=== PATIENT | female | born 1955 | race Caucasian/White ===

== ENCOUNTER → 2017-05-04 | Outpatient (CLI) | payer OTHER ==
--- NOTE | 2017-05-04 23:14 | MR ---
EXAMINATION TYPE: MR shoulder LT wo con DATE OF EXAM: 05/04/2017 COMPARISON: NONE HISTORY: Lt shoulder pain x 2 mos, no trauma TECHNIQUE: Multiplanar, multisequence imaging of the left shoulder is performed without contrast. FINDINGS: There is severe subacromial joint space narrowing. There is retraction of the supraspinatus tendon. T here is wavy appearance of the subscapularis tendon. Biceps tendon is intact. There is a shoulder sera nt effusion. The glenoid chayito appear intact. There is no evidence of a fracture. There is narrowing of the shoulder joint space. IMPRESSION: Large rotator cuff tear with retraction of the supraspinatus tendon. Severe subacromial joint space n arrowing and impingement. Shoulder joint effusion with partial tear of the subscapularis tendon. Supe rior subluxation of the humeral head.
== END | disposition home or self-care (01) ==
LOC: RADMRIMAIN 15:39
PROVIDERS: ATTEND Orthopaedic Surgery
DX: S43.002A Unspecified subluxation of left shoulder joint, initial encounter (principal); M75.112 Incomplete rotator cuff tear or rupture of left shoulder, not specified as traumatic; M25.812 Other specified joint disorders, left shoulder

== ENCOUNTER → 2017-09-27 | Outpatient (CLI) | payer OTHER ==
--- NOTE | 2017-09-27 13:47 | MR ---
EXAMINATION TYPE: MR shoulder RT wo con DATE OF EXAM: 09/27/2017 12:33 PM COMPARISON: NONE HISTORY: Rt shoulder pain TECHNIQUE: Multiplanar multispin echo imaging of the right shoulder was performed. FINDINGS: Rotator cuff : Full thickness partial tear anterior aspect of the supraspinatus tendon with fluid thai led gap of 9.4 mm. Remaining portions of the tendon demonstrates tendinopathy with edema. Partial tea r infraspinatus tendon noted. Bursa: No bursal effusion or thickening is seen. Musculature: Edema of the infraspinatus musculature seen. Acromioclavicular joint : There are moderate degenerative changes of the acromioclavicular joint. Cur ariana acromion noted. Small subacromial spur. Osseous structures : There are no fractures or regions of abnormal bone marrow signal intensity. Long biceps tendon : The biceps tendon is normally situated within the bicipital groove. No complete or partial biceps tendon tear is present. Glenohumeral Joint fluid : There is no glenohumeral joint effusion. Cartilage and Bone : No focal hyaline cartilage defects are noted. No Hill-Sachs, reverse Hill-Sachs, or bony Bankart lesions are seen. Labrum : There are no SLAP or soft tissue Bankart lesions. No paralabral cysts are seen. OTHER FINDINGS : none IMPRESSION: 1. Full thickness partial tear anterior aspect of the supraspinatus tendon with fluid filled gap of 9 .4 mm. Remaining portions of the tendon demonstrates tendinopathy with edema. Partial tear infraspina tus tendon noted.
== END | disposition home or self-care (01) ==
LOC: RADMRIMAIN 11:50
PROVIDERS: ATTEND Orthopaedic Surgery
DX: S46.811A Strain of other muscles, fascia and tendons at shoulder and upper arm level, right arm, initial encounter (principal); M75.121 Complete rotator cuff tear or rupture of right shoulder, not specified as traumatic; M75.81 Other shoulder lesions, right shoulder

== ENCOUNTER → 2017-11-14 | Outpatient (CLI) | payer OTHER ==
--- NOTE | 2017-11-20 09:15 | MM ---
Reason for exam: screening (asymptomatic). Last mammogram was performed 1 year and 8 months ago. History: Patient is postmenopausal. Benign MG stereo VAD BX RT of the right breast, September 02, 2014. Took estrogen for 7 years beginning at age 40. Physical Findings: A clinical breast exam by your physician is recommended on an annual basis and results should be correlated with mammographic findings. MG 3D Screening Mammo W/Cad Bilateral CC and MLO view(s) were taken. Prior study comparison: March 10, 2016, bilateral MG screening mammo w CAD. July 08, 2014, bilateral MG diagnostic mammo w CAD LLUVIA. There are scattered fibroglandular densities. There are increased calcifications at post biopsy site that could relate to developing fat necrosis, however further evaluation with magnification views will be performed. No suspicious abnormality on the left breast. ASSESSMENT: Incomplete: need additional imaging evaluation, BI-RAD 0 RECOMMENDATION: Special view mammogram of the right breast. [facility] will attempt to contact patient to return for supplemental views.
== END | disposition home or self-care (01) ==
LOC: RADMAMWWP 09:00
PROVIDERS: ATTEND Family Medicine
DX: Z12.31 Encounter for screening mammogram for malignant neoplasm of breast (principal)
CPT/HCPCS: 77063; 77067

== ENCOUNTER → 2017-11-22 | Outpatient (CLI) | payer OTHER ==
--- NOTE | 2017-11-23 10:31 | MM ---
Reason for exam: additional evaluation requested from abnormal screening. Last mammogram was performed less than 1 month ago. History: Patient is postmenopausal. Benign MG stereo VAD BX RT of the right breast, September 02, 2014. Took estrogen for 7 years beginning at age 40. Physical Findings: Nurse did not find any significant physical abnormalities on exam. MG 3D Work Up W/Cad RT CC with magnification, LM with magnification, and LM view(s) were taken of the right breast. Prior study comparison: November 14, 2017, bilateral MG 3d screening mammo w/cad. March 10, 2016, bilateral MG screening mammo w CAD. Finding: There are typically benign coarse calcifications in the right breast. New finding since November 14, 2017 and March 10, 2016. These results were verbally communicated with the patient and result sheet given to the patient on 11/22/17. ASSESSMENT: Probably benign, BI-RAD 3 RECOMMENDATION: Follow-up diagnostic mammogram of the right breast in 6 months.
== END | disposition home or self-care (01) ==
LOC: RADMAMWWP 15:39
PROVIDERS: ATTEND Family Medicine
DX: R92.8 Other abnormal and inconclusive findings on diagnostic imaging of breast (principal)
CPT/HCPCS: 77061; 77065

== ENCOUNTER 2018-01-02 06:11 | Day surgery (SDC) | payer OTHER ==
[2017-12-27 11:21] VITALS: BMI 37.0
--- NOTE | 2018-01-01 14:50 | HP ---
HISTORY AND PHYSICAL DATE OF SERVICE: 01/02/2018 Elisabeth Valera is a 62-year-old patient seen with progressive right shoulder pain. We discussed treatment options with her. She elected to proceed with right shoulder arthroscopy. Consent regarding the procedure was obtained. PAST MEDICAL HISTORY: Hypertension, hypothyroidism. PAST SURGICAL HISTORY: Hysterectomy. DAILY MEDICATIONS: Bisoprolol/hydrochlorothiazide. ALLERGIES: None reported. SOCIAL HISTORY: Patient denies current tobacco use. PHYSICAL EVALUATION OF THE RIGHT SHOULDER: Flexion 150 degrees, abduction 140 degrees, external rotation is 50 degrees with significant weakness. There is tenderness along the anterolateral acromion rotator cuff insertion site. Impingement positive at 90 degrees. Drop-arm sign positive. Distal neurovascular exam intact. RIGHT SHOULDER RADIOGRAPHS: Revealed cystic changes of the greater tuberosity. A right shoulder MRI revealed rotator cuff tear and acromioclavicular joint osteoarthritis. IMPRESSION: Right shoulder impingement with rotator cuff tear. PLAN: Right shoulder arthroscopy with subacromial decompression, possible arthroscopic rotator cuff repair and debridement. MMODL / IJN: [id number] /
[~2018-01-02 06:11] MED LIST: DEXAMETHASONE SOD PHOSPHATE 10 MG/ML 1 ML VIAL IV ONE; HYDROmorphone 0.5 MG/0.5 ML SYRINGE IVP PRN; LACTATED RINGERS 1,000 ML IV SCH; MIDAZOLAM 2 MG/2 ML VIAL IV PRN; MORPHINE SULFATE 4 MG/ML SYRINGE IV PRN; ONDANSETRON 4 MG/2 ML VIAL IVP ONE; ONDANSETRON 4 MG/2 ML VIAL IVP PRN; ceFAZolin IN SWFI 2 GM/20 ML SYRINGE IVP ONE
[2018-01-02] MEDS ORDERED: LIDOCAINE 1% 20 ML VIAL (10MG/ML) FOR IV START INTRADERMA ONE (06:42)
[2018-01-02] MEDS ORDERED: HYDROmorphone 1 MG/ML 1 ML SYRINGE IVP PRN (06:45)
[2018-01-02] MEDS ORDERED: MIDAZOLAM 2 MG/2 ML VIAL ONE ×2 (06:51→08:08)
[2018-01-02] MEDS ORDERED: fentaNYL (PF) 50 MCG/ML 2 ML AMP ONE ×2 (06:52→08:08)
[2018-01-02] MEDS ORDERED: ROCURONIUM BROMIDE 10 MG/ML 10 ML VIAL IV ONE (08:08)
[2018-01-02] MEDS ORDERED: HYDROmorphone (PF) 1 MG/ML ONE (08:08)
[2018-01-02] MEDS ORDERED: NEOSTIGMINE 1 MG/ML 10 ML VIAL ONE (08:08)
[2018-01-02] MEDS ORDERED: ROPIVACAINE 5 MG/ML 30 ML VIAL ONE (08:08)
[2018-01-02] MEDS ORDERED: KETOROLAC 30 MG/ML 1 ML VIAL ONE (08:08)
[2018-01-02] MEDS ORDERED: LIDOCAINE 1% INJ 10MG/ML (20 ML MDV) ONE (08:08)
[2018-01-02] MEDS ORDERED: PROPOFOL 10 MG/ML 20 ML VIAL IV ONE (08:08)
[2018-01-02] MEDS ORDERED: GLYCOPYRROLATE 0.2 MG/ML 2 ML VIAL ONE (08:08)
--- NOTE | 2018-01-02 10:02 | P.OP ---
Date of Procedure: 01/02/18 Preoperative Diagnosis: Right shoulder impingement Postoperative Diagnosis: 1. Right shoulder rotator cuff tear 2. Right shoulder impingement 3. Right shoulder acromioclavicular joint osteoarthritis 4. Right shoulder partial long head biceps tendon tear Procedure(s) Performed: 1. Right shoulder arthroscopic rotator cuff repair 2. Right shoulder arthroscopic subacromial decompression was 3. Right shoulder arthroscopic Luis procedure 4. Right shoulder arthroscopic biceps tenotomy Implants: 5Arthrex swivel lock anchors Anesthesia: GETA, regional (Interscalene block) Surgeon: Raymon Kelly Olive Grower #1: Humberto Beal Estimated Blood Loss (ml): 12 Pathology: none sent Condition: stable Disposition: PACU Indications for Procedure: 62-year-old patient seen with progressive right shoulder pain. After having treatment options discussed, she elected to proceed with arthroscopy. Operative Findings: see description of procedure Description of Procedure: Patient underwent an interscalene block by department of anesthesia for postoperative pain control. The patient was then taken to the operative suite. The patient underwent a general anesthetic by the department of anesthesia. The patient was placed into a lateral position and secured. There was appropriate padding of the bony prominence. Right shoulder was then prepped and draped in normal sterile orthopedic fashion. We placed the extremity in 10 pounds of longitudinal traction. A posterior incision was now made for a posterior working portal site. The trocar and cannula were inserted into the glenohumeral joint. Arthroscopy was initiated. Spinal needle was now inserted anteriorly, to ascertain the anterior working portal site. An incision was now made in that area, a trocar was inserted followed by a probe. There was significant partial tearing long head biceps tendon greater than 80%. There was an obvious massive rotator cuff tear clearly visualized from the glenohumeral joint. There were grade 1 on drill malacia changes of the glenoid fossa with no osteochondral tears present. The labrum appeared mildly frayed but intact. I performed an arthroscopic biceps tenotomy. The anchor was probed and found to be stable. Instruments now removed from glenohumeral joint. Utilizing the posterior working portal site, the trocar and cannula were inserted into the subacromial space. Arthroscopy initiated. I made an incision 2 fingerbreadths lateral to the acromion. I introduced my trocar followed by my ArthroCare ablator. I now began ablating thick subacromial bursal tissue, which exposed the undersurface of the anterior acromion. There was diminished subacromial space. There was a very prominent anterior acromion. A motorized bur was introduced and a subacromial decompression was performed. I also excised some osteophytes off the inferior aspect of the distal clavicle. The AC joint was visualized and noted to be fairly arthritic. The motorized bur was introduced in the anterior portal site and a Luis procedure was performed without difficulty, decompressing the AC joint nicely. I turned my attention to the rotator cuff. There was a 3 cm rotator cuff tear. I debrided the margins getting down to stable tendon tissue. I introduced my motorized bur and abraded the footprint area, getting some petechial bleeding. I now made an accessory portal site off the lateral aspect of the acromion. I punched 2 holes medial for medial row fixation with the assistance of Armani LUND carefully tapping the punch with a mallet as I held the punch and the camera. I now introduced both anchors into the pre-punched holes and Armani LUND tapped them with the mallet as I held anchors and the camera. Armani LUND now screwed the anchors in place a while I held the anchor guide and camera. All 8 limbs of suture were now passed through good bites of rotator cuff tendon. I now punched 2 holes for lateral row fixation again I held the punch and camera while Armani LUND used a mallet to tap in the punch. We now passed sutures through both anchors and individually I introduced the anchors into the pre- punch holes I held the anchor guide in position with one hand holding the camera with the other hand while Armani LUND tensioned the sutures and screwed in the anchors one at a time. All residual suture limbs were now clipped. I noted to prominent dogears. I now passed to link sutures through those. I now introduced one more anchors laterally to bring those dogears down and compressed some on the footprint. Those suture limbs were clipped. We had good compression of the tendon along the entire footprint. I injected 1 mL Renue intra-articular. Instruments now removed from the portal sites. All portal sites were approximated with nylon suture. Sterile dressings were applied followed by a shoulder immobilizer. Humberto LUND assisted in this complex case. The patient was awakened, transferred to a bed, and taken to recovery in stable condition.
[2018-01-02 10:03] VITALS: TEMP 97.1
[2018-01-02] MEDS ORDERED: IV FLUID CONTINUATION 1,000 ML IV ONE (10:40)
[2018-01-02 10:51] VITALS: BP 113/76
--- NOTE | 2018-01-02 10:52 | P.ONQ ---
Anesthesiology Proc Note - PNB - Peripheral Nerve Block Performed Right Interscalene Single Time Out Performed: Yes Procedure Start Time: 07:30 Procedure Stop Time: 07:45 Indication: Acute Post-Operative Pain, Requested by physician Sedation Type: Sedate with meaningful contact maintained Preparation: Sterile Prep Position: Supine Catheter: None Needle Size: 50mm (2") Needle Gauge: 21 Technique: Ultrasound Injectate: 0.5% Ropivacaine (see comment for volume) Blood Aspirated: No Pain Paresthesia on Injection Noted: No Resistance on Injection: Normal Events: Uneventful and Well Tolerated (Ropivicaine 0.5% 20ml solution infiltrated along the interscalene prefascial groove. Procedure was uneventful.)
[2018-01-02 11:26] VITALS: PULSE 75; RESP 18
== END 2018-01-02 11:47 | disposition home or self-care (01) ==
LOC: OR 06:11
PROVIDERS: ATTEND Orthopaedic Surgery
DX: M75.101 Unspecified rotator cuff tear or rupture of right shoulder, not specified as traumatic (principal); M75.41 Impingement syndrome of right shoulder; M19.011 Primary osteoarthritis, right shoulder; S46.111A Strain of muscle, fascia and tendon of long head of biceps, right arm, initial encounter; X58.XXXA Exposure to other specified factors, initial encounter; M25.711 Osteophyte, right shoulder; I10 Essential (primary) hypertension; E03.9 Hypothyroidism, unspecified; E66.01 Morbid (severe) obesity due to excess calories; Z68.37 Body mass index [BMI] 37.0-37.9, adult; E78.5 Hyperlipidemia, unspecified; F32.9 Major depressive disorder, single episode, unspecified; Z79.899 Other long term (current) drug therapy; Z79.890 Hormone replacement therapy; Z79.891 Long term (current) use of opiate analgesic; Z90.710 Acquired absence of both cervix and uterus; Z88.5 Allergy status to narcotic agent
CPT/HCPCS: 64415; 29824; 29827; 29826; C1713 ×4; C1765; J2250; J1100; J2710; J2405; J2001; J3010; J1885; J1170; J2795; J2704; J0690

== ENCOUNTER 2018-01-07 09:42 | Emergency (ER) | payer OTHER ==
[2018-01-07 09:55] VITALS: RESP 18
[2018-01-07] MEDS ORDERED: SODIUM CHLORIDE 0.9% 500 ML IV STA (10:02)
[2018-01-07 10:35] LABS: Basophils % (A) 0 %; Eosinophils # (A) 0.2 k/uL (0-0.7); Eosinophils % (A) 1 %; HCT 37.8 % (34.0-46.0); HGB 12.7 gm/dL (11.4-16.0); Lymphocytes # (A) 1.4 k/uL (1.0-4.8); Lymphocytes % (A) 8 %; MCH 30.1 pg (25.0-35.0); MCHC 33.6 g/dL (31.0-37.0); MCV 89.8 fL (80.0-100.0); Monocytes # (A) 0.7 k/uL (0-1.0); Monocytes % (A) 5 %; Neutrophils # (A) 13.6 k/uL (1.3-7.7); Neutrophils % (A) 85 %; Platelet Count 350 k/uL (150-450); RBC 4.21 m/uL (3.80-5.40); RDW 12.7 % (11.5-15.5)
--- NOTE | 2018-01-07 11:02 | XR ---
Abdomen HISTORY: Pain Frontal view of the abdomen on 2 images. No comparisons There is a spinal curvature, degenerative disc changes in the visualized spine. Bases are clear. Righ t hemidiaphragm is elevated. No evident obstruction or pneumoperitoneum. Probable vascular calcificat ions noted within the pelvis. IMPRESSION: Nonobstructive bowel gas pattern.
[2018-01-07 11:10] LABS: ALT 29 U/L (9-52); AST 27 U/L (14-36); Albumin 4.1 g/dL (3.5-5.0); Alkaline Phosphatase 88 U/L (38-126); Amylase 33 U/L (30-110); Anion Gap 10 mmol/L; Blood Urea Nitrogen 11 mg/dL (7-17); Calcium 9.9 mg/dL (8.4-10.2); Carbon Dioxide 27 mmol/L (22-30); Chloride 101 mmol/L (98-107); Glucose 112 mg/dL (74-99); Lipase 23 U/L (23-300); Potassium 4.1 mmol/L (3.5-5.1); Sodium 138 mmol/L (137-145); Total Bilirubin 0.9 mg/dL (0.2-1.3); Total Protein 7.2 g/dL (6.3-8.2)
--- NOTE | 2018-01-07 11:27 | ED ---
Abdominal Pain HPI - General Chief Complaint: Abdominal Pain Stated Complaint: Bowel obstruction Time Seen by Provider: 01/07/18 10:02 Source: patient Mode of arrival: ambulatory Limitations: no limitations - History of Present Illness Initial Comments: 62-year-old female with past medical history of hypertension, previous hysterectomy/ and internal hemorrhoids presenting today after being sent by primary care physician for possible bowel obstruction. Patient states that she had surgery on her right shoulder last week and has been on pain pills which have caused constipation. She states that she had a normal bowel movement the morning of the surgery however she has not had a large BM since. Patient has been able to have small liquid bowel movements, she states that she had noted some blood in her stools which happens when she strains from her hemorrhoids. In addition patient has had lower abdominal distention and diffuse lower abdominal pain, as well as pressure at the level of the rectum. She states it is a sharp aching pain in the rectum. Patient denies fever, chills , vomiting, melena, hematemesis. Patient states she presented to primary care provider for evaluation of abdominal pain where KUB was obtained she stated there was findings concerning for possible obstruction in the rectum and she was sent to the emergency department for evaluation. I spoke with patient's physician professional nursing assistant Мария who stated that there was no definitive bowel instruction however they noticed possible dilated loops concerning for obstruction. Upon arrival patient vital signs stable, afebrile. Patient denies any recent shortness of breath, chest pain, numbness or tingling, dysuria or hematuria, headaches or visual changes, or any other complaints. - Related Data Home Medications Medication Instructions Recorded Confirmed Bisoprolol-Hctz 10-6.25 mg [Ziac 2 tab PO QAM 04/16/15 01/07/18 10-6.25] Levothyroxine Sodium [Synthroid] 75 mcg PO DAILY 04/16/15 01/07/18 Sertraline [Zoloft] 100 mg PO QAM 04/16/15 01/07/18 Simvastatin [Zocor] 20 mg PO MOWEFR 04/16/15 01/07/18 Hydrocodone/Acetaminophen [Vicodin 1 tab PO Q6HR PRN 06/08/17 01/07/18 Hp 10-300 mg Tablet] Losartan Potassium 100 mg PO QAM 03/09/18 10/08/18 traMADol HCL [Ultram] 50 mg PO Q6HR PRN 06/08/17 01/07/18 traZODone HCL 50 mg PO HS 06/08/17 01/07/18 Previous Rx's Medication Instructions Recorded Docusate [Colace] 100 mg PO DAILY 7 Days #7 capsule 01/07/18 Allergies Allergy/AdvReac Type Severity Reaction Status Date / Time hydrocodone [From [place]] AdvReac Itching Verified 01/07/18 10:23 Review of Systems ROS Statement: Those systems with pertinent positive or pertinent negative responses have been documented in the HPI. ROS Other: All systems not noted in ROS Statement are negative. Constitutional: Denies: fever, chills, night sweats ENT: Denies: ear pain, throat pain Respiratory: Denies: cough, dyspnea, wheezes, hemoptysis, stridor Cardiovascular: Denies: chest pain, palpitations, dyspnea on exertion Gastrointestinal: Reports: abdominal pain, nausea, diarrhea (small loose BM), constipation (non normal BM in 5 days), hematochezia. Denies: vomiting, hematemesis, melena Genitourinary: Denies: urgency, dysuria, frequency, hematuria Musculoskeletal: Reports: back pain (chronic low back pain, denies changes), arthralgia (right shoulder pain s/p right shoulder surgery) Neurological: Denies: headache, weakness, numbness, paresthesias, confusion, abnormal gait Past Medical History Past Medical History: Asthma, Hyperlipidemia, Hypertension, Osteoarthritis (OA) , Thyroid Disorder Additional Past Medical History / Comment(s): varicose veins, History of Any Multi-Drug Resistant Organisms: None Reported Past Surgical History: Section, Hysterectomy, Orthopedic Surgery Additional Past Surgical History / Comment(s): LEFT KNEE ARTHROSCOPY, left shoulder rotator cuff, R shoulder surgery Past Anesthesia/Blood Transfusion Reactions: Motion Sickness Past Psychological History: Depression Smoking Status: Former smoker Past Alcohol Use History: Occasional Past Drug Use History: None Reported - Past Family History Brother(s) Family Medical History: Cancer Additional Family Medical History / Comment(s): pancreatic General Exam - General Exam Comments Initial Comments: General: The patient is awake and alert. Pt appears uncomfortable, no signs of distress. Eye: Pupils are equal, round and reactive to light, extra-ocular movements are intact. No nystagmus. There is normal conjunctiva bilaterally. No signs of icterus. Ears, nose, mouth and throat: There are moist mucous membranes and no oral lesions. Neck: The neck is supple, there is no tenderness or JVD. Cardiovascular: There is a regular rate and rhythm. No murmur, rub or gallop is appreciated. Respiratory: Lungs are clear to auscultation, respirations are non-labored, breath sounds are equal. No wheezes, stridor, rales, or rhonchi. Gastrointestinal: No noted diaphoresis, jaundice, pallor. Pt is squirming due to pain. Symmetrical pigmentation of abdomen without signs of inflammation. Striae and scarring present over abdomen. Umbilicus mildline, inverted without swelling. No dilated veins. Abdomen contour obese, with noted abdominal distention. No visible masses. No peristalsis, aortic pulsations, or ventral hernia. Bowel sounds audible in all 4 quadrants, unremarkable. No friction rubs or venous hums.No tenderness to light or deep palpation of the lower abdomen, no epigastric, RUQ or LLQ pain. Liver edge, not palpable. Spleen edge, right and left kidney not palpable. Superior bladder margin non-tender. Special Testing: Negative Rozel, Rovsing, McBurney, Jayda, Negative Heel Jar. No CVA tenderness. Digital rectal exam:internal hemorrhoids do not feel thrombosed, palpable stool ball in rectum. (-) Guiac. Negative roblero turners or cullens sign There is no rebound or guarding present. Musculoskeletal: Normal ROM, no tenderness. Strength 5/5. Sensation intact. Radial pulses equal bilaterally 2+. Neurological: A&O x 3. CN II-XII intact, There are no obvious motor or sensory deficits. Coordination appears grossly intact. Speech is normal. Skin: Skin is warm and dry and no rashes or lesions are noted. Psychiatric: Cooperative, appropriate mood & affect, normal judgment. Limitations: no limitations Course Vital Signs 01/07/18 01/07/18 09:51 13:18 Temperature 97.8 F 99.4 F Pulse Rate 89 79 Respiratory 18 18 Rate Blood Pressure 136/80 155/87 O2 Sat by Pulse 95 95 Oximetry Medical Decision Making - Medical Decision Making 62yo with hx of constipation concerning for bowel obstruction. Labs as noted above, unremarkable- elevated WBC most likely due to recent surgery (reactive). Pt KUB WNL. CT obtained revealing findings consistent with fecal impaction. JESS revealed palpable stool ball consistent with CT findings. (-) Guiac. Pt given 1L bolus and soap rivka enema however when nurse went to perform the enema pt stated that she had a "huge" bowel movement and feels much better. She no longer has pain at the abdomen or rectum and her distention has significantly improved. She is requesting d/c. Case discussed with Dr. De Luna who agrees with impression of fecal impaction/constipation, given pt had bowel movement and significant relief we feel comfortable discharging pt with stool softner and primary care f/u. Pt agrees with plan. Return parameters discussed. Patient is discharged in stable condition. - Lab Data Result diagrams: 01/07/18 10:00 01/07/18 10:00 Lab Results 01/07/18 01/07/18 01/07/18 Range/Units 10:00 10:00 12:56 WBC 16.0 H (3.8-10.6) k/uL RBC 4.21 (3.80-5.40) m/uL Hgb 12.7 (11.4-16.0) gm/dL Hct 37.8 (34.0-46.0) % MCV 89.8 (80.0-100.0) fL MCH 30.1 (25.0-35.0) pg MCHC 33.6 (31.0-37.0) g/dL RDW 12.7 (11.5-15.5) % Plt Count 350 (150-450) k/uL Neutrophils % 85 % Lymphocytes % 8 % Monocytes % 5 % Eosinophils % 1 % Basophils % 0 % Neutrophils # 13.6 H (1.3-7.7) k/uL Lymphocytes # 1.4 (1.0-4.8) k/uL Monocytes # 0.7 (0-1.0) k/uL Eosinophils # 0.2 (0-0.7) k/uL Basophils # 0.0 (0-0.2) k/uL Sodium 138 (137-145) mmol/L Potassium 4.1 (3.5-5.1) mmol/L Chloride 101 (98-107) mmol/L Carbon Dioxide 27 (22-30) mmol/L Anion Gap 10 mmol/L BUN 11 (7-17) mg/dL Creatinine 0.61 (0.52-1.04) mg/dL Est GFR (CKD-EPI)AfAm >90 (>60 ml/min/1.73 sqM) Est GFR (CKD-EPI)NonAf >90 (>60 ml/min/1.73 sqM) Glucose 112 H (74-99) mg/dL Calcium 9.9 (8.4-10.2) mg/dL Total Bilirubin 0.9 (0.2-1.3) mg/dL AST 27 (14-36) U/L ALT 29 (9-52) U/L Alkaline Phosphatase 88 (38-126) U/L Total Protein 7.2 (6.3-8.2) g/dL Albumin 4.1 (3.5-5.0) g/dL Amylase 33 (30-110) U/L Lipase 23 (23-300) U/L Urine Color Yellow Urine Appearance Clear (Clear) Urine pH 7.5 (5.0-8.0) Ur Specific [place] 1.038 H (1.001-1.035) Urine Protein Negative (Negative) Urine Glucose (UA) Negative (Negative) Urine Ketones Negative (Negative) Urine Blood Negative (Negative) Urine Nitrite Negative (Negative) Urine Bilirubin Negative (Negative) Urine Urobilinogen <2.0 (<2.0) mg/dL Ur Leukocyte Esterase Negative (Negative) Disposition Clinical Impression: Fecal impaction in rectum Disposition: HOME SELF-CARE Condition: Good Instructions: Constipation (ED), High Fiber Diet (ED) Additional Instructions: Please use medication as discussed. Please follow-up with family doctor in the next 2 days. Please return to emergency room if the symptoms increase or worsen or for any other concerns. Prescriptions: Docusate [Colace] 100 mg PO DAILY 7 Days #7 capsule Is patient prescribed a controlled substance at d/c from ED?: No Referrals: Liyah Cuadra DO [Primary Care Provider] - 1-2 days Time of Disposition: 13:05
--- NOTE | 2018-01-07 11:36 | CT ---
EXAMINATION TYPE: CT abdomen pelvis w con DATE OF EXAM: 01/07/2018 COMPARISON: None INDICATION: bowel obstruction DLP: 1957 mGycm, Automated exposure control for dose reduction was used. CONTRAST: 100 mL of Isovue 300. Study performed without Oral Contrast TECHNIQUE: Axial images were obtained from above the diaphragm to the pubic rami in the axial plane a t 5 mm thick sections. Reconstructed images are reviewed on the computer in the coronal plane. FINDINGS: Limited CT sections are obtained the lung bases. The lung bases are clear. CT ABDOMEN: Liver: Normal Spleen: Normal Pancreas: Normal Adrenal glands: The adrenal glands are normal. Gallbladder: Normal Kidneys: No masses are evident. No hydronephrosis is present. No cysts are present. Delayed images were obtained through the kidneys, which remain unremarkable. Aorta: Normal Inferior vena cava: Normal. CT PELVIS: Loops of bowel within the abdomen and pelvis are normal. Studies without oral contrast which caus es limitation. No suspicious dilated small bowel loops are evident. There is a large fecal bolus at t he level of the rectum. Correlate for fecal impaction. Appendix: Normal as visualized. Urinary bladder: Normal. Genitourinary structures: Uterus and ovaries are not identified. Osseous structures: No suspicious lytic or sclerotic lesions. Degenerative disc changes and scoliosis are within the lumbar spine. IMPRESSIONS: 1. Correlate for fecal impaction at the level the rectum. Changes to suggest obstruction are not oth erwise evident.
[2018-01-07 13:01] LABS: Appearance,Urine Clear (Clear); Bilirubin,Urine Negative (Negative); Blood,Urine Negative (Negative); Color,Urine Yellow; Glucose,Urine (UA) Negative (Negative); Ketones,Urine Negative (Negative); Leukocyte Esterase,Urine Negative (Negative); Nitrite,Urine Negative (Negative); PH, Urine 7.5 (5.0-8.0); Protein,Urine Negative (Negative); Specific Gravity,Urine 1.038 (1.001-1.035); Urobilinogen,Urine <2.0 mg/dL (<2.0)
[2018-01-07 13:20] VITALS: BP 155/87; PULSE 79; TEMP 99.4
== END 2018-01-07 13:21 | disposition home or self-care (01) ==
LOC: EC 09:42
DX: K56.41 Fecal impaction (principal); D72.829 Elevated white blood cell count, unspecified; K64.8 Other hemorrhoids; L81.9 Disorder of pigmentation, unspecified; E78.5 Hyperlipidemia, unspecified; I10 Essential (primary) hypertension; E07.9 Disorder of thyroid, unspecified; F32.9 Major depressive disorder, single episode, unspecified; Z87.891 Personal history of nicotine dependence; Z88.5 Allergy status to narcotic agent; Z79.899 Other long term (current) drug therapy
CPT/HCPCS: 36415; 80053; 82150; 83690; 85025; 81003; 74018; 74177; 99284; 96360; Q9967

== ENCOUNTER → 2018-03-22 | Outpatient (CLI) | payer OTHER ==
--- NOTE | 2018-03-22 15:01 | MR ---
EXAMINATION TYPE: MR lumbar spine wo con DATE OF EXAM: 03/22/2018 COMPARISON: CT abdomen pelvis dated 01/07/2018 HISTORY: Low back pain TECHNIQUE: Multiplanar, multisequence images of the lumbar spine were acquired. FINDINGS: The localizer images demonstrate a levoscoliosis of the upper thoracic or lumbar junction a nd dextroscoliosis of the lumbosacral spine. There is grade 1 anterolisthesis of L4 on L5 and mild re trolisthesis of L2 on L3 and L1 on L2. Multilevel Modic type II degenerative endplate changes are see n. There is some erosion of the anterior superior endplate of L5 however there is no abnormal signal within the intervertebral disc space to indicate discitis. No vertebral body height loss. L1-L2: There is a right foraminal disc herniation superimposed upon a broad-based disc bulge with fac et arthropathy and ligamentum flavum buckling creating severe right neural foraminal narrowing and ne rve root impingement. Left neural foramen appears patent. No significant spinal canal stenosis. L2-L3: There is a broad-based disc bulge and facet arthropathy with ligamentum flavum buckling result ing in mild spinal canal stenosis and moderate to severe bilateral neural foraminal narrowing. L3-L4: There is a broad-based disc bulge, facet arthropathy and ligamentum flavum buckling resulting in moderate left and mild right neural foraminal narrowing and mild spinal canal stenosis. L4-L5: There is a broad-based disc bulge, facet arthropathy and ligamentum flavum buckling resulting in mild bilateral neural foraminal narrowing and moderate spinal canal stenosis. L5-S1: There is a right foraminal disc herniation superimposed upon a broad-based disc bulge creating moderate right neural foraminal narrowing, mild left neural foraminal narrowing and mild spinal gallo l stenosis. IMPRESSION: 1. Severe multilevel degenerative disc disease resulting in mild spinal canal stenosis at L2-L3, L3-L 4, and L5-S1 and moderate spinal canal stenosis at L4-L5 with variable degrees of neural foraminal na rrowing as described above. 2. Right foraminal disc herniation at L5-S1 resulting in moderate right neural foraminal narrowing. 3. Right foraminal disc herniation at L1-L2 resulting in severe right neural foraminal narrowing and nerve root impingement. 4. S-shaped scoliotic curvature of the visualized thoracolumbar spine. 5. Grade 1 anterolisthesis of L4 on L5, likely on a degenerative basis. 6. Erosion of the anterior superior endplate of L5. No current evidence of discitis. This may be on t he basis of prior discitis, prior trauma, or degenerative disc disease and Schmorl's node formation.
== END | disposition home or self-care (01) ==
LOC: RADMRIMAIN 11:08
PROVIDERS: ATTEND Family Medicine
DX: M48.061 Spinal stenosis, lumbar region without neurogenic claudication (principal); M99.73 Connective tissue and disc stenosis of intervertebral foramina of lumbar region; M51.27 Other intervertebral disc displacement, lumbosacral region; M43.16 Spondylolisthesis, lumbar region; M51.37 Other intervertebral disc degeneration, lumbosacral region; M41.85 Other forms of scoliosis, thoracolumbar region
CPT/HCPCS: 72148

== ENCOUNTER 2018-05-07 14:41 | Inpatient (IN) | payer OTHER ==
[~2018-05-07 14:41] MED LIST changes: +ATORVASTATIN 10 MG TAB PO SCH; -DEXAMETHASONE SOD PHOSPHATE 10 MG/ML 1 ML VIAL IV ONE; -HYDROmorphone 0.5 MG/0.5 ML SYRINGE IVP PRN; -LACTATED RINGERS 1,000 ML IV SCH; -MIDAZOLAM 2 MG/2 ML VIAL IV PRN; -MORPHINE SULFATE 4 MG/ML SYRINGE IV PRN; -ONDANSETRON 4 MG/2 ML VIAL IVP ONE; -ONDANSETRON 4 MG/2 ML VIAL IVP PRN; -ceFAZolin IN SWFI 2 GM/20 ML SYRINGE IVP ONE
[2018-05-07] MEDS ORDERED: cefTRIAXone 2,000 MG in SODIUM CHLORIDE 0.9% 100 ML IVPB STA (17:00)
--- NOTE | 2018-05-07 17:10 | ED ---
Female Urogenital HPI - General Chief complaint: Urogenital Stated complaint: UTI Time Seen by Provider: 05/07/18 15:55 Source: patient, RN notes reviewed, old records reviewed Mode of arrival: wheelchair Limitations: no limitations - History of Present Illness Initial comments: This is a 63-year-old female to the ER for evaluation. Patient accepted in transfer for evaluation of urinary tract infection, pyelonephritis. He'll outpatient treatment as she has been on multiple courses of antibiotics. Patient has dysuria and does admit to bilateral CVA pain and tenderness. Occasional fevers mild nausea no vomiting. MD Complaint: dysuria -: days(s) Location: suprapubic Radiation: suprapubic Severity: mild Severity scale (1-10): 2 Quality: burning (Urination) Consistency: constant Improves with: urination Worsens with: urination Patient : No Associated Symptoms: abdominal pain, nausea/vomiting - Related Data Home Medications Medication Instructions Recorded Confirmed Bisoprolol-Hctz 10-6.25 mg [Ziac 1 tab PO QAM 04/16/15 05/07/18 10-6.25] Levothyroxine Sodium [Synthroid] 75 mcg PO DAILY 04/16/15 05/07/18 Sertraline [Zoloft] 100 mg PO QAM 04/16/15 05/07/18 Simvastatin [Zocor] 20 mg PO SUTUFR 04/16/15 05/07/18 Hydrocodone/Acetaminophen [Vicodin 1 tab PO Q6HR PRN 06/08/17 05/07/18 Hp 10-300 mg Tablet] Losartan Potassium 100 mg PO QAM 06/08/17 05/07/18 traZODone HCL 50 mg PO HS 06/08/17 05/07/18 Acetaminophen [Tylenol Arthritis] 650 mg PO BID 05/07/18 05/07/18 Cholecalciferol [Vitamin D3] 5,000 unit PO DAILY 05/07/18 05/07/18 Cyanocobalamin [Vitamin B-12] 500 mcg PO DAILY 05/07/18 05/07/18 Glucosamine/Chondr Walker A Sod [Osteo 1 tab PO DAILY 05/07/18 05/07/18 Bi-Flex Caplet] Magnesium Oxide 400 mg PO DAILY 05/07/18 05/07/18 Potassium 99 mg PO DAILY 05/07/18 05/07/18 Allergies Allergy/AdvReac Type Severity Reaction Status Date / Time hydrocodone [From [place]] AdvReac Itching Verified 05/07/18 16:30 Review of Systems ROS Statement: Those systems with pertinent positive or pertinent negative responses have been documented in the HPI. ROS Other: All systems not noted in ROS Statement are negative. Past Medical History Past Medical History: Asthma, Hyperlipidemia, Hypertension, Osteoarthritis (OA) , Thyroid Disorder Additional Past Medical History / Comment(s): varicose veins, History of Any Multi-Drug Resistant Organisms: None Reported Past Surgical History: Section, Hysterectomy, Orthopedic Surgery Additional Past Surgical History / Comment(s): LEFT KNEE ARTHROSCOPY, left shoulder rotator cuff, R shoulder surgery Past Anesthesia/Blood Transfusion Reactions: Motion Sickness Past Psychological History: Depression Smoking Status: Former smoker Past Alcohol Use History: Occasional Past Drug Use History: None Reported - Past Family History Brother(s) Family Medical History: Cancer Additional Family Medical History / Comment(s): pancreatic General Exam Limitations: no limitations General appearance: alert, in no apparent distress Head exam: Present: atraumatic, normocephalic, normal inspection Eye exam: Present: normal appearance, PERRL, EOMI. Absent: scleral icterus, conjunctival injection, periorbital swelling ENT exam: Present: normal exam, mucous membranes moist Neck exam: Present: normal inspection. Absent: tenderness, meningismus, lymphadenopathy Respiratory exam: Present: normal lung sounds bilaterally. Absent: respiratory distress, wheezes, rales, rhonchi, stridor Cardiovascular Exam: Present: regular rate, normal rhythm, normal heart sounds. Absent: systolic murmur, diastolic murmur, rubs, gallop, clicks GI/Abdominal exam: Present: soft, normal bowel sounds. Absent: distended, tenderness, guarding, rebound, rigid Extremities exam: Present: normal inspection, full ROM, normal capillary refill. Absent: tenderness, pedal edema, joint swelling, calf tenderness Back exam: Present: normal inspection Neurological exam: Present: alert, oriented X3, CN II-XII intact Psychiatric exam: Present: normal affect, normal mood Skin exam: Present: warm, dry, intact, normal color. Absent: rash Course Vital Signs 05/07/18 15:01 Temperature 98.0 F Pulse Rate 93 Respiratory 18 Rate Blood Pressure 119/82 O2 Sat by Pulse 97 Oximetry - Reevaluation(s) Reevaluation #1: 05/07/18 17:31 Medical record and transfer paperwork are reviewed Reevaluation #2: 05/07/18 17:31 Patient denies any significant acute complaints - Consultations Consultation #1: Spoke with Dr. Smith regarding admission, she is agreeable unaware Medical Decision Making - Medical Decision Making 63 female the ER for evaluation felt outpatient treatment of urinary tract infection pyelonephritis. Patient to be admitted for IV antibiotics - Radiology Data Radiology results: report reviewed (Outpatient scan is reviewed, negative) Disposition Clinical Impression: Urinary tract infection, Pyelonephritis, Failure of outpatient treatment Disposition: ADMITTED IP TO THIS HOSP Condition: Fair Is patient prescribed a controlled substance at d/c from ED?: No
[2018-05-07] MEDS: SODIUM CHLORIDE 0.9% 1,000 ML IV ONE (17:43)
[2018-05-07 18:08] LABS: Appearance,Urine Clear (Clear); Bilirubin,Urine Negative (Negative); Blood,Urine Negative (Negative); Color,Urine Dark Yellow; Glucose,Urine (UA) Negative (Negative); Ketones,Urine 1+ (Negative); Leukocyte Esterase,Urine Negative (Negative); Mucus,Urine Rare /hpf; Nitrite,Urine Negative (Negative); PH, Urine 6.5 (5.0-8.0); Protein,Urine 1+ (Negative); Squamous Epithelial Cell,Urine <1 /hpf (0-4); Urobilinogen,Urine <2.0 mg/dL (<2.0); WBC,Urine <1 /hpf (0-5)
[2018-05-07 18:15] LABS: Specific Gravity,Urine >1.050 (1.001-1.035)
[2018-05-07 20:11] VITALS: BMI 79.4
[2018-05-07] MEDS ORDERED: HYDROmorphone 0.5 MG/0.5 ML SYRINGE IVP PRN (21:10)
[2018-05-07] MEDS ORDERED: ACETAMINOPHEN TAB 325 MG TAB PO PRN (21:15)
[2018-05-07] MEDS: HYDROcodone/APAP 10-325MG 1 EACH TAB PO PRN (21:49)
[2018-05-08] MEDS: HYDROcodone/APAP 10-325MG 1 EACH TAB PO PRN ×4 (03:04→22:45)
[2018-05-08] MEDS: LEVOTHYROXINE 75 MCG TAB PO SCH (06:32)
[2018-05-08] MEDS: CHOLECALCIFEROL 1,000 UNIT TAB PO SCH (08:00)
[2018-05-08] MEDS: LOSARTAN 50 MG TAB PO SCH (08:00)
[2018-05-08] MEDS: CYANOCOBALAMIN 500 MCG TAB PO SCH (08:00)
[2018-05-08] MEDS: SERTRALINE 100 MG TAB PO SCH (08:01)
[2018-05-08] MEDS: POTASSIUM CHLORIDE ER 10 MEQ TAB.ER.PRT PO SCH (08:01)
[2018-05-08] MEDS: BISOPROLOL-HCTZ 10-6.25 MG 1 EACH TAB PO SCH (08:01)
[2018-05-08] MEDS: MAGNESIUM OXIDE 400 MG TAB PO SCH (08:01)
[2018-05-08] MEDS ORDERED: NON-FORMULARY DRUG (Glucosamine/Chondr Su A Sod [Osteo Bi-Flex Caplet] 1 TAB) PO SCH (09:00)
[2018-05-08 09:36] LABS: Basophils % (A) 0 %; Eosinophils # (A) 0.2 k/uL (0-0.7); Eosinophils % (A) 2 %; HCT 36.8 % (34.0-46.0); HGB 11.4 gm/dL (11.4-16.0); Lymphocytes # (A) 1.6 k/uL (1.0-4.8); Lymphocytes % (A) 22 %; MCV 93.7 fL (80.0-100.0); Mean Platelet Volume 6.6; Monocytes # (A) 0.4 k/uL (0-1.0); Monocytes % (A) 6 %; Neutrophils # (A) 4.8 k/uL (1.3-7.7); Neutrophils % (A) 67 %; Platelet Count 306 k/uL (150-450); RBC 3.92 m/uL (3.80-5.40); RDW 12.9 % (11.5-15.5); WBC 7.2 k/uL (3.8-10.6)
[2018-05-08 10:32] LABS: ALT 19 U/L (9-52); AST 15 U/L (14-36); Albumin 3.3 g/dL (3.5-5.0); Alkaline Phosphatase 57 U/L (38-126); Anion Gap 7 mmol/L; Blood Urea Nitrogen 18 mg/dL (7-17); Calcium 9.1 mg/dL (8.4-10.2); Carbon Dioxide 27 mmol/L (22-30); Chloride 107 mmol/L (98-107); Glucose 85 mg/dL (74-99); Potassium 4.2 mmol/L (3.5-5.1); Sodium 141 mmol/L (137-145); Total Bilirubin 0.6 mg/dL (0.2-1.3); Total Protein 6.1 g/dL (6.3-8.2)
--- NOTE | 2018-05-08 13:25 | US ---
EXAMINATION TYPE: US kidneys/renal and bladder DATE OF EXAM: 05/08/2018 COMPARISON: NONE CLINICAL HISTORY: Pyelonephritis. Pyelonephrosis, UTI, back pain EXAM MEASUREMENTS: Right Kidney: 12.2 x 5.2 x 5.7 cm Left Kidney: 12.3 x 6.0 x 5.0 cm Right Kidney: no evidence of hydronephrosis Left Kidney: no evidence of hydronephrosis Bladder: appears wnl Bilateral Jets seen: no, ureteral jet identified on the left and color Doppler Cortical medullary differentiation is maintained bilaterally. No renal mass or pathologic calcificati on. IMPRESSION: Renal sizes as described.
--- NOTE | 2018-05-08 13:32 | P.HPIM ---
History of Present Illness H&P Date: 05/08/18 This is a 63-year-old female patient of Dr. Cuadra. Patient presented with complaints of failed outpatient treatment for urinary tract infection significant back pain. Patient reports that approximately 2 weeks ago she presented to her primary care doctor with UTI. Patient was started on antibiotics but symptoms progressively became worse. She does have a significant past medical history for asthma, hyperlipidemia, hypertension, osteoarthritis and thyroid disorder. Patient started on Rocephin. Infectious disease consulted. Ultrasound of the bladder and kidneys ordered. At this time patient denies chest pain or shortness breath. Patient denies any nausea or vomiting. Patient is complaining of flank pain bilateral. Patient denies any urinary burning or frequency Review of Systems please refer to HPI otherwise unremarkable Past Medical History Past Medical History: Asthma, Hyperlipidemia, Hypertension, Osteoarthritis (OA) , Thyroid Disorder Additional Past Medical History / Comment(s): varicose veins, History of Any Multi-Drug Resistant Organisms: None Reported Past Surgical History: Section, Hysterectomy, Orthopedic Surgery Additional Past Surgical History / Comment(s): LEFT KNEE ARTHROSCOPY, left shoulder rotator cuff, R shoulder surgery Past Anesthesia/Blood Transfusion Reactions: No Reported Reaction, Motion Sickness Past Psychological History: Depression Smoking Status: Former smoker Past Alcohol Use History: Occasional Additional Past Alcohol Use History / Comment(s): QUIT SMOKING 1995, STARTED AT AGE 16, 1 PPD Past Drug Use History: None Reported - Past Family History Brother(s) Family Medical History: Cancer Additional Family Medical History / Comment(s): pancreatic Medications and Allergies Home Medications Medication Instructions Recorded Confirmed Type Bisoprolol-Hctz 10-6.25 mg [Ziac 1 tab PO QAM 04/16/15 05/07/18 History 10-6.25] Levothyroxine Sodium [Synthroid] 75 mcg PO DAILY 04/16/15 05/07/18 History Sertraline [Zoloft] 100 mg PO QAM 04/16/15 05/07/18 History Simvastatin [Zocor] 20 mg PO SUTUFR 04/16/15 05/07/18 History Hydrocodone/Acetaminophen [Vicodin 1 tab PO Q6HR PRN 06/08/17 05/08/18 History Hp 10-300 mg Tablet] Losartan Potassium 100 mg PO QAM 06/08/17 05/07/18 History traZODone HCL 50 mg PO HS 06/08/17 05/07/18 History Acetaminophen [Tylenol Arthritis] 650 mg PO BID 05/07/18 05/07/18 History Cholecalciferol [Vitamin D3] 5,000 unit PO DAILY 05/07/18 05/07/18 History Cyanocobalamin [Vitamin B-12] 500 mcg PO DAILY 05/07/18 05/07/18 History Glucosamine/Chondr Walker A Sod [Osteo 1 tab PO DAILY 05/07/18 05/07/18 History Bi-Flex Caplet] Magnesium Oxide 400 mg PO DAILY 05/07/18 05/07/18 History Potassium 99 mg PO DAILY 05/07/18 05/07/18 History Allergies Allergy/AdvReac Type Severity Reaction Status Date / Time hydrocodone [From [place]] AdvReac Itching Verified 05/07/18 16:30 Physical Exam Vitals: Vital Signs Temp Pulse Pulse Resp BP BP Pulse Ox 05/08/18 13:05 98.9 F 73 18 125/76 93 L 05/08/18 07:43 97.8 F 68 18 122/82 96 05/08/18 03:00 70 18 94 L 05/07/18 22:03 98.3 F 74 16 136/82 92 L 05/07/18 19:20 98.0 F 68 16 130/85 94 L 05/07/18 18:19 99.3 F 66 18 131/79 95 05/07/18 15:01 98.0 F 93 18 119/82 97 Intake and Output 05/07/18 05/08/18 05/08/18 22:59 06:59 14:59 Intake Total 600 1540 Balance 600 1540 Intake: Intake, IV Titration 100 1000 Amount Sodium Chloride 0.9% 1, 1000 000 ml @ 100 mls/hr IV . Q10H ONE Rx#:[id number] cefTRIAXone 2,000 mg In 100 Sodium Chloride 0.9% 100 ml @ 100 mls/hr IVPB ONCE STA Rx#:[id number] Oral 500 540 Other: # Voids 1 Weight 104.326 kg Head normocephalic Neck supple Lungs clear to auscultation bilaterally no wheezing or crackles Heart regular rate and rhythm S1-S2, no rub or gallop Abdomen is soft nontender nondistended positive bowel sounds no hepatosplenomegaly. Bilateral flank tenderness to palpation Extremities no edema Neuro alert and orientated to 3 Results CBC & Chem 7: 05/08/18 09:22 05/08/18 09:22 Labs: Abnormal Lab Results - Last 24 Hours (Table) 05/07/18 05/08/18 Range/Units 17:35 09:22 BUN 18 H (7-17) mg/dL Total Protein 6.1 L (6.3-8.2) g/dL Albumin 3.3 L (3.5-5.0) g/dL Ur Specific [place] >1.050 H (1.001-1.035) Urine Protein 1+ H (Negative) Urine Ketones 1+ H (Negative) Urine Mucus Rare H (None) /hpf Microbiology - Last 24 Hours (Table) 05/07/18 17:35 Urine Culture - Preliminary Urine,Voided Thrombosis Risk Factor Assmnt - Choose All That Apply Each Factor Represents 1 point: Obesity (BMI >25), Varicose veins Each Risk Factor Represents 2 Points: Age 61-74 years Other congenital or acquired thrombophilia - If yes, enter type in comment: No Thrombosis Risk Factor Assessment Total Risk Factor Score: 4 Thrombosis Risk Factor Assessment Level: Moderate Risk Assessment and Plan Assessment: 1. Urinary tract infection possible pyelonephritis. Failed outpatient treatment. Ultrasound of gallbladder and kidneys ordered. Infectious disease consulted. Patient started on Rocephin. Urine cultures ordered 2. History of asthma. No exacerbation at this time 3. History of hyperlipidemia 4. History of osteoarthritis 5. History of thyroid disorder 6. History of essential hypertension DVT prophylaxis Lovenox. GI prophylaxis Pepcid Time with Patient: Greater than 30 (Greater than 60% of the total time spent in counseling and coordination of care. I performed an examination of the patient and discussed their management with the Nurse Practitioner. I have reviewed the Nurse Practitioner's notes and agree with the documented findings and plan of care)
[2018-05-08] MEDS: IBUPROFEN 600 MG TAB PO PRN (18:29)
[2018-05-08] MEDS ORDERED: traZODone HCL 50 MG TAB PO SCH (21:00)
--- NOTE | 2018-05-09 06:15 | CONS ---
CONSULTATION DATE OF SERVICE: 05/08/2018 REASON FOR CONSULTATION: Pyelonephritis HISTORY OF PRESENT ILLNESS: The patient is a 63-year-old female who apparently is dealing with urinary tract infection for almost 2 weeks. However, the patient did have initially urinary burning and frequency and some pain in the right flank area. The patient describes the pain to the back area, more of a dull aching pain 5 to 6 out of 10 and no radiation. The patient did have some dry heaves, but no vomiting. Denies any suprapubic pain. No diarrhea. No chest pain, shortness of breath or cough. The patient has been treated in the outpatient setting with antibiotic, but the patient is not clear about the name. With persistent symptoms, the patient presented to hospital and has been diagnosed with pyelonephritis. She was started on Rocephin. Infectious Disease was consulted for further recommendation regarding antibiotic therapy. REVIEW OF SYSTEMS: Positive points have been mentioned in HPI. Rest of the systems has been negative. PAST MEDICAL HISTORY: Hypertension, hyperlipidemia, osteoarthritis, hypothyroidism, varicose veins, asthma. PAST SURGICAL HISTORY: , hysterectomy left knee arthroplasty, left shoulder rotator cuff and right shoulder surgery. SOCIAL HISTORY: Remote history of smoking. Occasionally drinks. No drug use. FAMILY HISTORY: Mother with history of pancreatic cancer. ALLERGIES: Allergies to HYDROCODONE. MEDICATIONS: Medications include the patient is currently on Tylenol, [place], Lipitor, Ziac, ceftriaxone, vitamin D3, Lovenox, Pepcid, Dilaudid, Motrin, Synthroid, Cozaar, Mag oxide, Zoloft, Desyrel. PHYSICAL EXAMINATION: On examination, blood pressure 105/58 with a pulse of 83, temperature 99.1. She is 91% on room air. General description is a middle aged female, lying in bed in no distress. No tachypnea or accessory muscle of respiration use. HEENT examination shows no pallor or scleral icterus. Oral mucous membrane is dry. No pharyngeal erythema or thrush. NECK: Trachea central. No thyromegaly. LUNGS: Unlabored breathing, clear to auscultation anteriorly. No wheeze or crackle. HEART: S1, S2. Regular rate and rhythm. ABDOMEN: Soft, no tenderness. Minimal flank area tenderness. No guarding or rigidity. No organomegaly. EXTREMITIES: No edema of feet. SKIN EXAMINATION: No rash or mass palpable. NEUROLOGICALLY: Patient is awake, alert, oriented x3. Mood and affect normal. LABS: Hemoglobin is 11.4, white count 7.2 with a BUN of 18, creatinine 0.67. Electrolytes have been normal. Liver enzymes are normal. Urine was relatively negative. Ultrasound of the kidneys and bladder area did not show any evidence of hydronephrosis. DIAGNOSTIC IMPRESSION AND PLAN: Patient admitted to the hospital with flank pain in this patient who currently did not have significant burning or frequency of urine. The patient UA has not been positive with question of possible recent antibiotic use in the outpatient setting in this patient currently with no fever or elevated white count. Clinically doubt pyelonephritis to be the etiology of her symptomatology. PLAN: 1. The patient may need further workup for her low back pain for possible MRI in the outpatient setting. 2. Currently on Rocephin. If the patient's symptom improves with the Rocephin then transition to a short course of oral Ceftin to finish a course of therapy. Thank you for this consultation. Will follow this patient along with you. MMODL / IJN: [id number] /
[2018-05-09] MEDS: LEVOTHYROXINE 75 MCG TAB PO SCH (06:22)
[2018-05-09] MEDS: SODIUM CHLORIDE 0.9% 1,000 ML IV ONE (06:26)
[2018-05-09] MEDS: IBUPROFEN 600 MG TAB PO PRN ×2 (06:26→14:22)
[2018-05-09 06:31] VITALS: RESP 18
[2018-05-09] MEDS: BISOPROLOL-HCTZ 10-6.25 MG 1 EACH TAB PO SCH (07:49)
[2018-05-09] MEDS: SERTRALINE 100 MG TAB PO SCH (07:50)
[2018-05-09] MEDS: MAGNESIUM OXIDE 400 MG TAB PO SCH (07:50)
[2018-05-09] MEDS: CHOLECALCIFEROL 1,000 UNIT TAB PO SCH (07:50)
[2018-05-09] MEDS: POTASSIUM CHLORIDE ER 10 MEQ TAB.ER.PRT PO SCH (07:51)
[2018-05-09] MEDS: LOSARTAN 50 MG TAB PO SCH (07:51)
[2018-05-09] MEDS: HYDROcodone/APAP 10-325MG 1 EACH TAB PO PRN ×2 (07:51→13:58)
[2018-05-09] MEDS: CYANOCOBALAMIN 500 MCG TAB PO SCH (07:51)
[2018-05-09] MEDS ORDERED: ENOXAPARIN 40 MG/0.4 ML SYRINGE SQ SCH (09:00)
[2018-05-09] MEDS ORDERED: FAMOTIDINE 20 MG TAB PO SCH (09:00)
[2018-05-09 09:12] LABS: Basophils % (A) 0 %; Eosinophils # (A) 0.1 k/uL (0-0.7); Eosinophils % (A) 2 %; HCT 35.7 % (34.0-46.0); HGB 11.6 gm/dL (11.4-16.0); Lymphocytes # (A) 1.4 k/uL (1.0-4.8); Lymphocytes % (A) 21 %; MCH 29.8 pg (25.0-35.0); MCHC 32.4 g/dL (31.0-37.0); MCV 92.1 fL (80.0-100.0); Mean Platelet Volume 6.1; Monocytes # (A) 0.3 k/uL (0-1.0); Monocytes % (A) 5 %; Neutrophils % (A) 71 %; Platelet Count 319 k/uL (150-450); RBC 3.88 m/uL (3.80-5.40); RDW 12.6 % (11.5-15.5)
[2018-05-09 09:22] LABS: ALT 27 U/L (9-52); AST 18 U/L (14-36); Albumin 3.2 g/dL (3.5-5.0); Alkaline Phosphatase 64 U/L (38-126); Anion Gap 7 mmol/L; Blood Urea Nitrogen 12 mg/dL (7-17); Calcium 9.1 mg/dL (8.4-10.2); Carbon Dioxide 25 mmol/L (22-30); Chloride 108 mmol/L (98-107); Glucose 93 mg/dL (74-99); Potassium 4.2 mmol/L (3.5-5.1); Sodium 140 mmol/L (137-145); Total Bilirubin 0.7 mg/dL (0.2-1.3)
[2018-05-09 11:36] VITALS: PULSE 61; TEMP 98.2
--- NOTE | 2018-05-09 14:06 | P.DS ---
Providers Date of admission: 05/07/18 17:00 Expected date of discharge: 05/09/18 Attending physician: Tonie Su Consults: 05/08/18 11:50 Consult Physician Routine Consulting Provider: Luis Simons Consult Reason/Comments: Pyelonephritis Do you want consulting provider notified?: Yes Primary care physician: Liyah Cuadra Hospital Course: Discharge diagnosis 1. Back pain. Suspected Urinary tract infection possible pyelonephritis ruled out. Patient has remained afebrile white blood cell within normal limits. Abdomen and bladder ultrasound completed showing no evidence of hydronephrosis no ureteral jet identified on the left and color Doppler no renal mass or pathological calcification. Urine culture showing no growth after 18 hours. Discussed case with Dr. Simons per ID. patient has no infection at this time. Pain is likely related to patient's chronic issues with her back discomfort in which she is currently getting worked up for by her PCP. Patient reports she does have a referral to orthopedic doctor in [place]. Patient refusing to see anybody local in [place]. 2. History of asthma. No exacerbation at this time 3. History of hyperlipidemia 4. History of osteoarthritis 5. History of thyroid disorder 6. History of essential hypertension Hospital Course This is a 63-year-old female patient of Dr. Cuadra. Patient presented with complaints of failed outpatient treatment for urinary tract infection significant back pain. Patient reports that approximately 2 weeks ago she presented to her primary care doctor with UTI. Patient was started on antibiotics but symptoms progressively became worse. She does have a significant past medical history for asthma, hyperlipidemia, hypertension, osteoarthritis and thyroid disorder. Patient started on Rocephin. Infectious disease consulted. Ultrasound of the bladder and kidneys ordered. At this time patient denies chest pain or shortness breath. Patient denies any nausea or vomiting. Patient is complaining of flank pain bilateral. Patient denies any urinary burning or frequency On 05/09/2018 patient is alert and oriented 3. Patient has been maintained on her home pain meds at this time. Patient's urine culture currently showing no growth. Patient has been afebrile, white blood cells have been within normal limits. Discussed case with ID. Per ID patient has no infection at this time. Back discomfort likely related to patient's chronic issues with low back pain. Patient reports she had MRI completed through her PCP in which was reviewed and she was referred to [facility] for orthopedics pain specialist. Patient states she refused to see anybody locally and is planning to follow-up with referral and PCP. This time patient denies chest pain or shortness breath. Patient denies nausea vomiting or diarrhea. Patient denies urinary burning or frequency I performed an examination of the patient and discussed their management with the Nurse Practitioner. I have reviewed the Nurse Practitioner's notes and agree with the documented findings and plan of care Patient Condition at Discharge: Stable Plan - Discharge Summary Discharge Rx Participant: Yes New Discharge Prescriptions: Continue Levothyroxine Sodium [Synthroid] 75 mcg PO DAILY Bisoprolol-Hctz 10-6.25 mg [Ziac 10-6.25 MG] 1 tab PO QAM Sertraline [Zoloft] 100 mg PO QAM Simvastatin [Zocor] 20 mg PO SUTUFR traZODone HCL 50 mg PO HS Hydrocodone/Acetaminophen [Vicodin Hp 10-300 mg Tablet] 1 tab PO Q6HR PRN PRN Reason: Pain Losartan Potassium 100 mg PO QAM Magnesium Oxide 400 mg PO DAILY Cyanocobalamin [Vitamin B-12] 500 mcg PO DAILY Cholecalciferol [Vitamin D3] 5,000 unit PO DAILY Potassium 99 mg PO DAILY Glucosamine/Chondr Walker A Sod [Osteo Bi-Flex Caplet] 1 tab PO DAILY Acetaminophen [Tylenol Arthritis] 650 mg PO BID Discharge Medication List Bisoprolol-Hctz 10-6.25 mg [Ziac 10-6.25 MG] 1 tab PO QAM 04/16/15 [History] Levothyroxine Sodium [Synthroid] 75 mcg PO DAILY 04/16/15 [History] Sertraline [Zoloft] 100 mg PO QAM 04/16/15 [History] Simvastatin [Zocor] 20 mg PO SUTUFR 04/16/15 [History] Hydrocodone/Acetaminophen [Vicodin Hp 10-300 mg Tablet] 1 tab PO Q6HR PRN [History] Losartan Potassium 100 mg PO QAM 06/08/17 [History] traZODone HCL 50 mg PO HS 06/08/17 [History] Acetaminophen [Tylenol Arthritis] 650 mg PO BID 05/07/18 [History] Cholecalciferol [Vitamin D3] 5,000 unit PO DAILY 05/07/18 [History] Cyanocobalamin [Vitamin B-12] 500 mcg PO DAILY 05/07/18 [History] Glucosamine/Chondr Walker A Sod [Osteo Bi-Flex Caplet] 1 tab PO DAILY 05/07/18 [ History] Magnesium Oxide 400 mg PO DAILY 05/07/18 [History] Potassium 99 mg PO DAILY 05/07/18 [History] Follow up Appointment(s)/Referral(s): Liyah Cuadra DO [Primary Care Provider] - 1-2 days Activity/Diet/Wound Care/Special Instructions: Pt would like discharge rx Discharge Disposition: HOME SELF-CARE
[2018-05-09 15:36] VITALS: BP 152/86
--- NOTE | 2018-05-09 16:18 | PN ---
PROGRESS NOTE DATE OF SERVICE: 05/09/2018. REASON FOR FOLLOWUP: Back pain and question of pyelonephritis. INTERVAL HISTORY: The patient is afebrile. She is breathing comfortably. She denies pain to the back area. No burning or frequency of urine. No suprapubic pain, no nausea. No vomiting. No diarrhea. PHYSICAL EXAMINATION: Blood pressure 153/93 with a pulse of 81, temperature 98.2. She is 95% on room air. General description is a middle-aged female up in the bed in no distress. Respiratory system: Unlabored breathing. Clear to auscultation anteriorly. Heart S1, S2. Regular rate and rhythm. Abdomen soft, no tenderness. LABS: White count . Blood culture urine is negative. We were able to obtain the urine sample in the outpatient setting before the antibiotic was stopped and that was not significantly positive either. DIAGNOSTIC IMPRESSION AND PLAN: Patient with flank pain, more likely related to the lumbosacral spine disease. Clinically doubt pyelonephritis or UTI. Antibiotic discontinued. Plan of care discussed with the RN as well as the nurse practitioner for the primary team. Continue supportive care. MMODL / IJN: [id number] /
== END 2018-05-09 16:45 | disposition home or self-care (01) | DRG 552 ==
LOC: EC 14:41 → 4MS4W 17:00 → 6PED 17:29
PROVIDERS: ADMIT Internal Medicine; ATTEND Internal Medicine
DX: M54.5 Low back pain (principal); E03.9 Hypothyroidism, unspecified; E78.5 Hyperlipidemia, unspecified; F32.9 Major depressive disorder, single episode, unspecified; I10 Essential (primary) hypertension; J45.909 Unspecified asthma, uncomplicated; I83.90 Asymptomatic varicose veins of unspecified lower extremity; M19.90 Unspecified osteoarthritis, unspecified site; G89.29 Other chronic pain; E66.9 Obesity, unspecified; Z68.36 Body mass index [BMI] 36.0-36.9, adult; Z79.890 Hormone replacement therapy; Z79.899 Other long term (current) drug therapy; Z88.5 Allergy status to narcotic agent; Z87.891 Personal history of nicotine dependence; Z90.710 Acquired absence of both cervix and uterus; Z96.652 Presence of left artificial knee joint; Z80.0 Family history of malignant neoplasm of digestive organs
CPT/HCPCS: 76770; 80053; 81001; 85025; 87086; 96365; 99284

== ENCOUNTER → 2018-07-31 | Outpatient (CLI) | payer OTHER ==
[~2018-07-31] MED LIST changes: -ATORVASTATIN 10 MG TAB PO SCH; +REGADENOSON 0.4 MG/5 ML SYRINGE IV ONE
--- NOTE | 2018-07-31 12:09 | EST ---
EXERCISE STRESS AGE: 63 SEX: F HT: 5'7" WT: 211 PROTOCOL: Lexiscan Cardiolite Stress Test HEART RATE REST: 73 BLOOD PRESSURE REST: 127/75 MAXIMUM HEART RATE ACHIEVED: 87 MAXIMUM BLOOD PRESSURE: 127/75 85% MPHR: 134 100% MPHR: 158 INDICATIONS: Preoperative, abnormal EKG. CLINICAL INFORMATION: Referred by Dr. Cuadra for an abnormal ECG, evaluation for abnormal ECG. She is awaiting surgery. Baseline heart rate 73 beats per minute. Baseline blood pressure 123/75 mmHg. Baseline 12-lead ECG shows sinus rhythm with flattening of the T-waves in the precordial leads and [address] elevation with T-wave inversions in the inferior leads. Patient received Persantine infusion per protocol. There was no in no definite ECG evidence for ischemia. No arrhythmias were noted. The heart rate and blood pressure remained stable. Nuclear portion of the stress test will be reported separately. MMODL / ALISONN: [id number] /
--- NOTE | 2018-07-31 13:13 | NM ---
EXAMINATION TYPE: NM stress lexiscan cardiolite DATE OF EXAM: 07/31/2018 COMPARISON: NONE HISTORY: Abnormal EKG TECHNIQUE: After the intravenous administration of 10.01 mCi Tc 99m Sestamibi - Cardiolite resting S PECT images acquired 45 minutes post injection. The patient received 0.4mg Lexiscan, 25.3 mCi Tc 99m Sestamibi - Stress images obtained [address] injection FINDINGS: Review of stress and rest SPECT images demonstrates thinning of the inferior wall the myocardium with suspected fixed defect. Correlate clinically.. Gated analysis shows normal wall motion with an eric mated left ventricular ejection fraction of 65 %. IMPRESSION: 1. Suspected fixed defect involving the inferior wall of the myocardium. Tiny area of stress-induced reversibility not excluded correlate clinically. A [place] level critical message alert has been initiated for Liyah Cuadra DO via the [employer] Critical Results System on 07/31/2018 1:10 PM. This message alert has been sent to Liyah pearson DO via the preferences provided by the clinician for the receipt of Radiology Critical Findings. Message ID [id number].
== END ==
LOC: RADNMMAIN 08:05
PROVIDERS: ATTEND Family Medicine
DX: R94.31 Abnormal electrocardiogram [ECG] [EKG] (principal)
CPT/HCPCS: 93017; 78452; A9500; J2785

== ENCOUNTER → 2018-12-10 | Outpatient (CLI) | payer OTHER ==
--- NOTE | 2018-12-10 09:27 | MM ---
Reason for exam: screening (asymptomatic). Last mammogram was performed 1 year and 1 month ago. History: Patient is postmenopausal. Benign MG stereo VAD BX RT of the right breast, September 02, 2014. Took estrogen for 7 years beginning at age 40. Physical Findings: A clinical breast exam by your physician is recommended on an annual basis and results should be correlated with mammographic findings. MG 3D Screening Mammo W/Cad Bilateral CC and MLO view(s) were taken. Prior study comparison: November 22, 2017, right breast MG 3d work up w/cad RT. November 14, 2017, bilateral MG 3d screening mammo w/cad. There are scattered fibroglandular densities. There are stable bilateral calcifications. No suspicious abnormality. Post biopsy change on the right. No significant changes when compared with prior studies. ASSESSMENT: Benign, BI-RAD 2 RECOMMENDATION: Routine screening mammogram of both breasts in 1 year.
== END | disposition home or self-care (01) ==
LOC: RADMAMWWP 07:13
PROVIDERS: ATTEND Family Medicine
DX: Z12.31 Encounter for screening mammogram for malignant neoplasm of breast (principal)
CPT/HCPCS: 77063; 77067

== ENCOUNTER → 2020-02-10 | Outpatient (CLI) | payer MEDICARE ==
--- NOTE | 2020-02-11 08:34 | MM ---
Reason for exam: screening (asymptomatic). Last mammogram was performed 1 year and 2 months ago. History: Patient is postmenopausal. Benign MG stereo VAD BX RT of the right breast, September 02, 2014. Took estrogen for 7 years beginning at age 40. Physical Findings: A clinical breast exam by your physician is recommended on an annual basis and results should be correlated with mammographic findings. MG 3D Screening Mammo W/Cad Bilateral CC and MLO view(s) were taken. Prior study comparison: December 10, 2018, bilateral MG 3d screening mammo w/cad. November 22, 2017, right breast MG 3d work up w/cad RT. The breast tissue is heterogeneously dense. This may lower the sensitivity of mammography. Previous mammotome biopsy in the right breast. No significant changes when compared with prior studies. ASSESSMENT: Benign, BI-RAD 2 RECOMMENDATION: Routine screening mammogram of both breasts in 1 year.
== END | disposition home or self-care (01) ==
LOC: RADMAMWWP 10:43
PROVIDERS: ATTEND Family Medicine
DX: Z12.31 Encounter for screening mammogram for malignant neoplasm of breast (principal)
CPT/HCPCS: 77063; 77067

== ENCOUNTER → 2022-10-13 | Outpatient (CLI) | payer MEDICARE ==
--- NOTE | 2022-10-16 08:45 | MM ---
Reason for Exam: Screening (asymptomatic). Last mammogram was performed 2 year(s) and 8 month(s) ago. Patient History: Menarche at age 12. First Full-Term at age 24. Left ovary removed at age 40. Right ovary removed at age 40. Hysterectomy at age 40. Postmenopausal. Estrogen for 7 years from age 40 until age 47. 09/02/2014, Benign Core Biopsy on the right side. Risk Values: Fauzia 5 year model risk: 1.9%. NCI Lifetime model risk: 7.0%. Prior Study Comparison: 11/22/2017 Right Diagnostic Mammogram, [facility]. 12/10/2018 Bilateral Screening Mammogram, [facility]. 02/10/2020 Bilateral Screening Mammogram, [facility]. Tissue Density: The breast tissue is almost entirely fat. Findings: Analyzed By CAD. Right breast biopsy clip. There is no suspicious group of microcalcifications or new suspicious mass in either breast. Overall Assessment: Benign, BI-RAD 2 Management: Screening Mammogram of both breasts in [address] [facility] will attempt to contact patient to return for supplemental views and ultrasound if indicated. Patient should continue monthly self-breast exams. A clinical breast exam by your physician is recommended on an annual basis. This exam should not preclude additional follow-up of suspicious palpable abnormalities. Note on Fauzia scores and lifetime risk: 1. A Fauzia score greater than 3% is considered moderate risk. If this is the case, consider specialist referral to assess eligibility for a risk reducing agent. 2. If overall lifetime risk for the development of breast cancer is 20% or higher, the patient may qualify for future screening with alternating mammogram and breast MRI. Electronically signed and approved by: Gilmar Mariscal DO
== END | disposition home or self-care (01) ==
LOC: RADMAMWWP 06:56
PROVIDERS: ATTEND Family Medicine
DX: Z12.31 Encounter for screening mammogram for malignant neoplasm of breast (principal); Z78.0 Asymptomatic menopausal state
CPT/HCPCS: 77063; 77067

== ENCOUNTER → 2023-10-17 | Outpatient (CLI) | payer MEDICARE ==
--- NOTE | 2023-10-21 12:37 | MM ---
Reason for Exam: Screening (asymptomatic). Last screening mammogram was performed 12 month(s) ago. Patient History: Menarche at age 12. First Full-Term at age 24. Left ovary removed at age 40. Right ovary removed at age 40. Hysterectomy at age 40. Postmenopausal. Estrogen for 7 years from age 40 until age 47. 09/02/2014, Benign Core Biopsy on the right side. Risk Values: Fauzia 5 year model risk: 2.0%. NCI Lifetime model risk: 6.7%. Prior Study Comparison: 12/10/2018 Bilateral Screening Mammogram, [facility]. 02/10/2020 Bilateral Screening Mammogram, [facility]. 10/13/2022 Bilateral MG 3D screening mammo w/cad, [facility]. Tissue Density: There are scattered areas of fibroglandular density. Findings: Analyzed By CAD. The pattern is symmetrical. Pattern is stable. Core marker is within the right breast. Mild focal asymmetries in this region. Benign vascular calcifications present. Scattered benign calcifications are present. No significant interval changes are evident. No suspicious groups of microcalcifications, spiculated or lobular masses, architectural distortion or other secondary signs of malignancy are mammographically apparent. Overall Assessment: Benign, BI-RAD 2 Management: Screening Mammogram of both breasts in 1 year. A negative mammogram report should not preclude additional follow up of suspicious palpable abnormalities. Patient should continue monthly self breast exam. A clinical breast exam by your physician is recommended on an annual basis and results should be correlated with mammographic findings. Note on Fauzia scores and lifetime risk: 1. A Fauzia score greater than 3% is considered moderate risk. If this is the case, consider specialist referral to assess eligibility for a risk reducing agent. 2. If overall lifetime risk for the development of breast cancer is 20% or higher, the patient may qualify for future screening with alternating mammogram and breast MRI. Electronically signed and approved by: Jann Yanez D.O. Radiologis
== END | disposition home or self-care (01) ==
LOC: RADMAMWWP 08:36
PROVIDERS: ATTEND Family Medicine
DX: Z12.31 Encounter for screening mammogram for malignant neoplasm of breast (principal); R92.323 Mammographic fibroglandular density, bilateral breasts; Z78.0 Asymptomatic menopausal state
CPT/HCPCS: 77063; 77067